=== PATIENT | female | born 1935 | race Hispanic/Latino ===

== ENCOUNTER 2017-04-19 18:08 | Emergency (ER) | payer OTHER | END 2017-04-19 19:16 | disposition home or self-care (01) | LOC: EDH 18:08 | DX: L52 Erythema nodosum (principal); L03.116 Cellulitis of left lower limb; I10 Essential (primary) hypertension; Z90.710 Acquired absence of both cervix and uterus ==

== ENCOUNTER 2018-09-11 05:39 | Day surgery (SDC) | payer OTHER ==
[2018-09-11] VITALS (8 sets, daily range): BP systolic 108–133; BP diastolic 48–63
[~2018-09-11] VITALS: Ht 152.4 cm; Wt 39.7 kg
[~2018-09-11 05:39] MED LIST: DIGO125T87 PO; MIRT15TA PO; ONDA4TAB4 PO; RIVA4.6T TD; VENL75TA63 PO
[2018-09-11] MEDS ORDERED: SODIUM CHLORIDE 0.9% 1000ML 1,000 ML IV ONE (06:30)
[2018-09-11] MEDS ORDERED: PROPOFOL 10 MG/ML 20ML VIAL IV ONE (07:07)
[2018-09-11] MEDS ORDERED: PHENYLEPHRINE HCL 10 MG/ML 1ML VIAL IV ONE (07:23)
[2018-09-11] MEDS ORDERED: EPHEDRINE SULFATE 50 MG/ML AMPULE ONE (07:23)
[2018-09-11 08:10] LABS: CREATININE 0.8 mg/dL (0.5-1.5); POTASSIUM 3.4 mmol/L (3.5-5.1)
== END 2018-09-11 08:30 | disposition home or self-care (01) ==
LOC: DAH 05:39 → ENDO 05:39
PROVIDERS: ATTEND Internal Medicine
DX: K83.8 Other specified diseases of biliary tract (principal); K83.1 Obstruction of bile duct; K85.00 Idiopathic acute pancreatitis without necrosis or infection; K31.89 Other diseases of stomach and duodenum; K86.89 Other specified diseases of pancreas; R93.3 Abnormal findings on diagnostic imaging of other parts of digestive tract; R93.2 Abnormal findings on diagnostic imaging of liver and biliary tract; E78.5 Hyperlipidemia, unspecified; I10 Essential (primary) hypertension; K21.9 Gastro-esophageal reflux disease without esophagitis; N17.9 Acute kidney failure, unspecified; D64.9 Anemia, unspecified; K59.04 Chronic idiopathic constipation; Z79.899 Other long term (current) drug therapy; Z86.010 Personal history of colon polyps; Z90.710 Acquired absence of both cervix and uterus; Z98.890 Other specified postprocedural states; Z88.8 Allergy status to other drugs, medicaments and biological substances; Z88.5 Allergy status to narcotic agent
CPT/HCPCS: 36415; 43238; 80048; 88108; 88305; 93005; A4606; A4649; J2370; J2704; J7030; J3490

== ENCOUNTER 2018-09-25 22:41 | Inpatient (IN) | payer OTHER ==
[~2018-09-25] VITALS: Ht 157.5 cm; Wt 36.3 kg
[2018-09-25] MEDS ORDERED: SODIUM CHLORIDE 0.9% 1000ML 1,000 ML IV ONE (23:37)
[2018-09-25] MEDS ORDERED: METOCLOPRAMIDE 10 MG/2 ML VIAL ONE (23:37)
[2018-09-25 23:58] LABS: BASOPHILS % (AUTO) 0.6 % (0.0-5.0); HEMATOCRIT 38.2 % (36-48); MEAN CORPUSCULAR HEMOGLOBIN 32.3 pg (27.0-33.0); MEAN CORPUSCULAR HGB CONC 34.8 g/dL (32.0-36.0); MEAN CORPUSCULAR VOLUME 92.9 fL (79-99); MONOCYTES % (AUTO) 7.8 % (3.0-13.0); NEUTROPHILS % (AUTO) 81.6 % (40.0-77.0); PLATELET COUNT (AUTO) 397 K/uL (130-400); RED BLOOD CELL COUNT(AUTO) 4.12 MIL/uL (4.00-5.50); RED CELL DISTRIBUTION WIDTH 16.6 % (11.0-15.5); WHITE BLOOD COUNT (AUTO) 7.7 K/uL (4.8-10.8)
[2018-09-26] VITALS (7 sets, daily range): BP systolic 98–144; BP diastolic 55–76
[2018-09-26 00:12] LABS: INR 1.28 (0.85-1.15); PARTIAL THROMBOPLASTIN TIME 23.3 SEC (26.3-35.5); PROTHROMBIN TIME 13.4 SEC (9.6-11.6)
[2018-09-26 00:22] LABS: ALBUMIN 4.5 g/dL (3.5-5.0); BILIRUBIN,TOTAL 0.7 mg/dL (0.2-1.0); CREATININE 2.7 mg/dL (0.5-1.5); DIGOXIN 1.42 ng/mL (0.50-2.00); POTASSIUM 5.4 mmol/L (3.5-5.1); THYROID STIMULATING HORMONE 2.63 uIU/mL (0.36-3.74); TOTAL PROTEIN, SERUM 8.5 g/dL (6.0-8.3)
[2018-09-26 02:10] LABS: APPEARANCE,URINE Clear (CLEAR); BILIRUBIN,URINE Negative (NEGATIVE); COLOR,URINE Yellow (YELLOW); GLUCOSE, URINE (UA) Negative (NEGATIVE); KETONES,URINE Negative (NEGATIVE); LEUKOCYTE ESTERASE ,URINE Small (NEGATIVE); NITRATE,URINE Negative (NEGATIVE); OCCULT BLOOD,URINE Negative (NEGATIVE); PROTEIN,URINE Trace mg/dL (NEGATIVE); UROBILINOGEN,URINE 0.2 mg/dL (0.2-1.0)
[2018-09-26 02:30] LABS: BACTERIA,URINE Few /HPF (None Seen); RBC,URINE 0-1 /HPF (0-1)
[2018-09-26 02:31] LABS: FINE GRANULAR CASTS,URINE 0-2 /LPF (None Seen)
[2018-09-26 04:17] LABS: HEMATOCRIT 36.1 % (36-48); MEAN CORPUSCULAR HEMOGLOBIN 31.2 pg (27.0-33.0); MEAN CORPUSCULAR HGB CONC 33.6 g/dL (32.0-36.0); MEAN CORPUSCULAR VOLUME 92.8 fL (79-99); NUCLEATED RED BLOOD CELLS 0.2 % (0.0-0.19); PLATELET COUNT (AUTO) 332 K/uL (130-400); RED BLOOD CELL COUNT(AUTO) 3.89 MIL/uL (4.00-5.50); RED CELL DISTRIBUTION WIDTH 16.4 % (11.0-15.5); WHITE BLOOD COUNT (AUTO) 7.5 K/uL (4.8-10.8)
[2018-09-26 04:23] LABS: BILIRUBIN,TOTAL 0.6 mg/dL (0.2-1.0); CREATININE 2.3 mg/dL (0.5-1.5); POTASSIUM 5.3 mmol/L (3.5-5.1); TOTAL PROTEIN, SERUM 7.6 g/dL (6.0-8.3)
[2018-09-26] MEDS: 1/2 NORMAL SALINE 1,000 ML IV SCH ×2 (14:45→22:45)
--- NOTE | 2018-09-26 16:00 | NUR ---
INITIAL MET W PT AT BEDSIDE, ALONE- VERY VERY FRAIL- MED RECORD REVIEWED, NOTED WEIGHT LOSS SINCE LAST ADMIT- BMI FROM 16 TO 14. PT STATES IN NO DISTRESS. DAUGHTER CALLED KATT- KNOWN--TO THIS TIRE RECAPPER- DAUGHTER ADVISED THAT MDS KNOW THERE IS BLOCKAGE- THAT OUT PT BIOPSY OF STRICTURE IN GALL BLADDER HAPPENED BUT IT WAS INCONCLUSIVE AND THAT PATIENT WAS TO HAVE ANOTHER MRI TUSDAY MORNING AND COULD SHE NOT HAVE IT DONE PRIOR TO LEAVING HOSPITAL? CALL TO DR. 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 Nroton NOTED THIS PT WAS NEW TO HIM, THAT TUMOR MARKERS ARE NOT USED FOR CA DX, AND HE WOULD THNK ABOUT PT STATUS Addendum: 09/30/18 at 1655 by HELENE AGUILAR RN CM Amended: Links added.
[2018-09-27] MEDS ORDERED: HYDROMORPHONE 4MG/ML 1ML VIAL IVP PRN (02:15)
[2018-09-27 03:57] VITALS: BP 109/57
[2018-09-27] MEDS: 1/2 NORMAL SALINE 1,000 ML IV SCH ×3 (04:27→22:45)
[2018-09-27 05:12] LABS: HEMATOCRIT 29.9 % (36-48); MEAN CORPUSCULAR HGB CONC 33.6 g/dL (32.0-36.0); MEAN CORPUSCULAR VOLUME 95.3 fL (79-99); NUCLEATED RED BLOOD CELLS 0.2 % (0.0-0.19); PLATELET COUNT (AUTO) 222 K/uL (130-400); RED BLOOD CELL COUNT(AUTO) 3.13 MIL/uL (4.00-5.50); RED CELL DISTRIBUTION WIDTH 16.1 % (11.0-15.5); WHITE BLOOD COUNT (AUTO) 5.3 K/uL (4.8-10.8)
[2018-09-27 05:18] LABS: POTASSIUM 3.9 mmol/L (3.5-5.1)
[2018-09-27 07:30] VITALS: BP 107/81
[2018-09-27 11:00] VITALS: BP 110/52
[2018-09-27 16:00] VITALS: BP 109/69
[2018-09-27 20:13] VITALS: BP 126/67
[2018-09-28] VITALS (7 sets, daily range): BP systolic 89–161; BP diastolic 46–98
[2018-09-28] MEDS ORDERED: HYDROMORPHONE HCL 0.5 MG/0.5 ML ML ONE (02:01)
[2018-09-28 04:47] LABS: CREATININE 0.9 mg/dL (0.5-1.5); POTASSIUM 3.8 mmol/L (3.5-5.1)
[2018-09-28 05:03] LABS: HEMATOCRIT 33.3 % (36-48); MEAN CORPUSCULAR HEMOGLOBIN 31.1 pg (27.0-33.0); MEAN CORPUSCULAR HGB CONC 33.3 g/dL (32.0-36.0); MEAN CORPUSCULAR VOLUME 93.4 fL (79-99); PLATELET COUNT (AUTO) 230 K/uL (130-400); RED BLOOD CELL COUNT(AUTO) 3.56 MIL/uL (4.00-5.50); RED CELL DISTRIBUTION WIDTH 16.2 % (11.0-15.5); WHITE BLOOD COUNT (AUTO) 8.5 K/uL (4.8-10.8)
--- NOTE | 2018-09-28 06:40 | NUR ---
DR. KRAFT ROUNDED; SEEN PT WITH ORDERS CARRIED OUT.
[2018-09-28] MEDS: ONDANSETRON HCL 4 MG/2 ML VIAL IVP PRN ×2 (07:01→19:58)
[2018-09-28] MEDS: 1/2 NORMAL SALINE 1,000 ML IV SCH ×3 (07:01→19:59)
--- NOTE | 2018-09-28 20:00 | NUR ---
MEDS SHIFT ASSESSMENT DONE, PLEASE REFER TO CHART. PT COMPLAINTS OF NAUSEA. NEW IV BAG HUNG. MEDICATED WITH ZOFRAN IV FOR NAUSEA. PT'S DAUGHTER AT BEDSIDE IN ATTENDANCE TO NEEDS AT THIS TIME. Addendum: 09/29/18 at 0036 by WILLY BRENNAN RN RN Amended: Links added.
--- NOTE | 2018-09-28 22:00 | NUR ---
ROUNDS PT RESTING WELL, NO DISTRESS NOTED. KEPT RESTED AND COMFORTABLE. CALL LIGHT WITHIN REACH. WILL MONITOR PT.
[2018-09-29 00:31] VITALS: BP 91/54
--- NOTE | 2018-09-29 01:30 | NUR ---
BATHE PT REQUESTED TO BE CHANGED. PCP IN AND GAVE PT A BED BATH, TOLERATED WELL. WAFFLE MATTRESS PLACED ON BED. KEPT RESTED AND COMFORTABLE IN BED WITH HOB ELEVATED. WILL MONITOR PT.
[2018-09-29] MEDS: 1/2 NORMAL SALINE 1,000 ML IV SCH ×2 (04:58→15:24)
[2018-09-29 05:15] VITALS: BP 102/53
[2018-09-29 05:24] LABS: BASOPHILS % (AUTO) 0.2 % (0.0-5.0); HEMATOCRIT 31.3 % (36-48); MEAN CORPUSCULAR HEMOGLOBIN 31.4 pg (27.0-33.0); MEAN CORPUSCULAR HGB CONC 33.4 g/dL (32.0-36.0); MEAN CORPUSCULAR VOLUME 93.9 fL (79-99); MONOCYTES % (AUTO) 2.6 % (3.0-13.0); NEUTROPHILS % (AUTO) 95.2 % (40.0-77.0); PLATELET COUNT (AUTO) 244 K/uL (130-400); RED BLOOD CELL COUNT(AUTO) 3.33 MIL/uL (4.00-5.50); RED CELL DISTRIBUTION WIDTH 16.2 % (11.0-15.5); WHITE BLOOD COUNT (AUTO) 16.7 K/uL (4.8-10.8)
[2018-09-29 05:35] LABS: CREATININE 1.1 mg/dL (0.5-1.5); POTASSIUM 4.5 mmol/L (3.5-5.1)
--- NOTE | 2018-09-29 06:15 | NUR ---
MD DR KRAFT IN TO SEE PT. D/C ORDERS GIVEN, PLEASE REFER TO CPOE. FOR MORE CARE.
[2018-09-29 07:00] VITALS: BP 111/58
--- NOTE | 2018-09-29 09:20 | NUR ---
DR. SAMUEL PAGED DAUGHTER REQUESTING MRI TODAY AND ERCP AND IS ASKING WHY AREN'T THEY DOING IT TODAY.
[2018-09-29 11:00] VITALS: BP 125/58
--- NOTE | 2018-09-29 11:00 | NUR ---
DR. SAMUEL NOTIFIED RE; MRI REQUESTED BY DAUGHTER TODAY INSTEAD OF TOMORROW. PENDING CALL BACK SPOKE TO [employer] CLERK. STATES THEY WILL CALL ME BACK.
[2018-09-29] MEDS: ONDANSETRON HCL 4 MG/2 ML VIAL IVP PRN (15:26)
[2018-09-29 16:00] VITALS: BP 104/52
[2018-09-29] MEDS ORDERED: GADODIAMIDE 10 MMOL/20 ML VIAL IV ONE (16:18)
--- NOTE | 2018-09-29 16:45 | NUR ---
DR. SAMUEL CALLED BACK OKAY TO DO MRI BEFORE PATIENT LEAVES HOSPITAL. DR KEARNEY WILL BLINTZE ROLLER PATIENT AT 1830. AFTER SHE IS OUT OF WORK (DAUGHTER KATT).
--- NOTE | 2018-09-29 18:10 | NUR ---
PT D/C HOME USING TEACH BACK TECHNIQUE RE; FOLLOW UP WITH DR. MARTINEZ IN 4-5 DAYS OR A WALK IN. FOLLOW UP WITH DR. SAMUEL IN 1 WEEK TO DISCUSS PLANS FOR AN ERCP OUTPATIENT (IN 1 WEEK OR WHEN INFLAMMATION HAS RESOLVED). MRI OF ABD WAS COMPLETED, RESULTS PENDING, DR. SAMUEL'S OFFICE WILL CALL FOR RESULTS, SINCE RESULTS WERE NOT AVIALABLE AT TIME OF DISCHARGE HOME. IF SEVERE ABDOMINAL PAIN RE-OCCURS CALL 911 OR COME TO YOUR NEAREST EMERGENCY ROOM. IV OUT INTACT NO BLEEDING, TELE REMOVED BY DRILL SERGEANT, DENIES ANY PAIN AT THIS TIME, NOR NAUSEA NOR VOMITING, AAOX2, DAUGHTER KATT AT BEDSIDE DENIES ANY QUESTIONS. Addendum: 09/29/18 at 1901 by NORBERTO BRIAN RN RN DAUGHTER WAS ADVICE TO ENCOURAGE FLUIDS TO PATIENT AFTER MRI. HAS AGREED.
== END 2018-09-29 18:35 | disposition home or self-care (01) | DRG 439 ==
LOC: EDH 22:41 → EDHIP 09-26 01:20 → OBSVTOIN 09-26 01:20 → 4BH 09-26 01:50
PROVIDERS: ADMIT Internal Medicine; ATTEND Internal Medicine
DX: K85.90 Acute pancreatitis without necrosis or infection, unspecified (principal); R64 Cachexia; Z68.1 Body mass index [BMI] 19.9 or less, adult; E86.0 Dehydration; I10 Essential (primary) hypertension; K86.1 Other chronic pancreatitis; M19.90 Unspecified osteoarthritis, unspecified site; Z88.5 Allergy status to narcotic agent; Z90.710 Acquired absence of both cervix and uterus; Z86.14 Personal history of Methicillin resistant Staphylococcus aureus infection
CPT/HCPCS: 36415; 71045; 74183; 76705; 80048; 80053; 80162; 81001; 82550; 83605; 83690; 84443; 84484; 85025; 85027; 85610; 85730; 86304; 86316; 93005; 97039; A9579; G0378; J1170; J2405; J2765; J7030